=== PATIENT | male | born 2000 | race Two or more races ===

== ENCOUNTER 2024-09-19 20:07 | Emergency (ER) | payer MEDICAID, SELFPAY ==
[2024-09-19 20:54] VITALS: BP 145/65; PULSE 70; RESP 18; O2SAT 100; BMI 29.7
--- NOTE | 2024-09-19 21:06 | EDNOTE_ITS ---
<Statement entered by Jennifer Light MD - 09/21/24 04:31> As co-signing physician, I was present and available for consult prn. I concur with the plan and care as documented by the midlevel provider. ED Dental RME/HPI General Chief complaint: Dental/Oral/Throat Stated complaint: CUT ON TONGUE Time Seen by Provider: 09/19/24 20:36 Arrival date/time: 09/19/24 20:07 RME / HPI RME / HPI Narrative: 24-year-old male patient was brought in by family for evaluation regarding tongue laceration on the left side after patient accidentally bit his tongue yesterday. Patient is worried because of a laceration. Severity of symptoms mild. Patient is not currently bleeding. He denies any other complaints Related Data Previous Rx's ?Medication ?Instructions ?Recorded pectin 6 mg lozenges (Throat Drops) 1 lozg PO PRN PRN pain ##20 10/25/14 naproxen 500 mg tablet (Naprosyn) 500 mg PO BID PRN pa in #20 tabs 03/11/20 Allergies Allergy/AdvReac Type Severity Reaction Status Date / Time NKA* Allergy Uncoded 03/11/20 14:50 Review of Systems Review of Systems Narrative Review of Systems: Review of system reviewed and within normal limits except mentioned in HPI ED Exam Narrative Physical exam: VITAL SIGNS: Reviewed. GENERAL APPEARANCE: Alert and interactive, follows commands, no acute distress, HEAD AND FACE: Non-traumatic. ENT: PERRL, pink conjunctivitis, eyelid no trauma, Mucous membrane moist. 0.2 laceration left lateral side of the tongue, no bleeding NECK: Supple, nontender, no nuchal rigidity. MUSCULOSKELETAL: low back nontender, full range of motion. EXTREMITIES: Nontender, full range of motion. SKIN: Color pink, dry, no rash, no lacerations, no abrasions, no contusions. LYMPHATICS: Deferred. Course Quality Measures none Vital Signs Vital signs: Vital Signs Pulse Rate 70 09/19/24 20:54 Respiratory Rate 18 09/19/24 20:54 Blood Pressure 145/65 H 09/19/24 20:54 Pulse Oximetry (%) 100 09/19/24 20:54 Oxygen Delivery Method Room Air 09/19/24 20:54 Dental / Oral MDM Narrative MDM Narrative:: 24-year-old male patient was brought in by family for evaluation regarding tongue laceration on the left side after patient accidentally bit his tongue yesterday. Patient is worried because of a laceration. Severity of symptoms mi ld. Patient is not currently bleeding. He denies any other complaints Repair is not needed at this time. It will heal without any problem. Patient appears nontoxic and hemodynamically stable. Patient discharged home and instructed to follow-up with primary care provider in 24 to 48 hours. Instructed to return to the emergency department immediately if worsening of symptoms Patient data External records reviewed:: None Clinical information provided by:: patient Social determinants that could affect healthcare access:: none Patient has the following chronic illnesses:: None How is presenting disease/condition affected by chronic disease/condition?: no chronic disease Evaluation data The following diagnostics were reviewed and interpreted by me:: other (specify) Lab and/or radiology exams considered but not ordered:: None Interpretation Summary: None Medications / Prescriptions Medications or Prescriptions considered but not ordered:: None Medication administrations:: None Consultations Consultation(s) initiated? (list below): No Diagnosis Dental Differential Diagnosis: dental caries, dental abscess and other (Tongue laceration) Most likely diagnosis given after review of the tests above:: Tongue laceration Admission Indicated Admission indicated?: not indicated Admission Request Was there a request for admission?: No Disposition Plan Disposition Plan: Discharge Discharge Attestation Discharge Attestation: The patient was given an opportunity to ask questions and understood the discharge instructions. Discharge instructions specifically effects, indications for sooner follow up or return to the emergency department, and the expected course of current diagnosis. Patient condition: Stable Discharge Plan Plan Patient Disposition: HOME (Self Care) Discharge Disposition comment: stable Prescriptions/Referrals Prescriptions/Med Rec: No Action pectin [Throat Drops] 6 MG lozenge 1 lozg PO PRN PRN (Reason: pain) Qty: 20 0RF Rx Instructions: Please dispense any throat loss and that has 6-10 mg of benzocaine and with or without dextromethorphan. naproxen [Naprosyn] 500 mg tablet 500 mg PO BID PRN (Reason: pain) Qty: 20 0RF Problem List Clinical Impression: Tongue laceration Patient/Caregiver Discharge Instructions Discharge Activity: activity as tolerated Education Materials: ED Laceration Small or ... Additional Instructions: Thank you for the opportunity for serving you today. You are stable for discharged . You are advised to: Follow-up with your PCP in 1 to 2 days Return to ED for worsening of symptoms Increase oral fluids Hydrogen peroxide combined with water, [id number] 3 times a day as needed Print Language: Spanish Stand Alone Forms: Jammie Award Info., Patient Portal Info Letter PA/HAIRSPRING II INSPECTOR Supervising Physician PA/HAIRSPRING II INSPECTOR Supervising Physician: MD Kuldeep
== END 2024-09-19 21:00 | disposition home or self-care (01) ==
LOC: SERX 21:16
PROVIDERS: Emergency Provider Emergency Medicine
DX: S01.512A Laceration without foreign body of oral cavity, initial encounter (principal); X58.XXXA Exposure to other specified factors, initial encounter
CPT/HCPCS: 99281